=== PATIENT | male | born 1950 | race Caucasian/White ===

== ENCOUNTER 2020-09-07 10:13 | Day surgery (SDC) | payer MEDICARE, OTHER ==
[2020-09-06 12:20] VITALS: BMI 21.9
[2020-09-07] MEDS ORDERED: ePHEDrine 50 MG/ML VIAL ONE (10:51)
[2020-09-07] MEDS ORDERED: Bupivacaine PF 0.5% 30 ML VIAL ONE (11:42)
[2020-09-07] MEDS ORDERED: EPINEPHrine 1 MG/ML AMP ONE (11:42)
[2020-09-07] MEDS ORDERED: Fentanyl 100 MCG/2 ML VIAL ONE (12:58)
[2020-09-07] MEDS ORDERED: Propofol 500 MG/50 ML VIAL ONE (13:00)
[2020-09-07] MEDS ORDERED: Midazolam HCl 2 mg/2 ml Vial ONE (13:00)
[2020-09-07] MEDS ORDERED: Ketamine 50 MG/ML (10ML VIAL) ONE (13:00)
[2020-09-07] MEDS ORDERED: Iopamidol 15 ML ONE (14:28)
[2020-09-07] MEDS ORDERED: methylPREDNISolone Acetate 40 mg/ml Vial ONE (14:28)
[2020-09-07] MEDS ORDERED: Iopamidol 0 ML ONE (14:28)
--- NOTE | 2020-09-07 15:40 | RAD ---
XR Thoracic Spine 1 View History: Dorsal column stimulator Comparison: None. Findings: A single image was obtained with dorsal column stimulator wire projecting over the thoracic spine. Impression: Fluoroscopy for procedure purposes.
[2020-09-07] MEDS ORDERED: HYDROcodone/Acetaminophen 5/325 mg Tablet ONE (16:28)
--- NOTE | 2020-09-07 23:29 | OP ---
DATE OF PROCEDURE: 09/07/2020 PREOPERATIVE DIAGNOSES: 1. Complex regional pain syndrome, type 2 G 56.40. 2. G 89.4, chronic pain syndrome. 3. Post dural puncture headache, G 97.1. POSTOPERATIVE DIAGNOSES: 1. Complex regional pain syndrome, type 2 G 56.40. 2. G 89.4, chronic pain syndrome. 3. Post dural puncture headache, G 97.1. procedure performed 1. Spinal cord stimulator generator implant. 2. Spinal cord stimulator lead implant x1. 3. Spinal cord stimulator lead implant, unsuccessful, attempted but aborted. 4. Epidural blood patch. ESTIMATED BLOOD LOSS: Minimal. SUMMARY OF PROCEDURE: The patient was taken to the operating room and placed prone on the operating room table. A time-out was performed. The back was prepped with ChloraPrep and sterile drapes were applied. Using fluoroscopy, we located the interspaces of T9-10. We lined up a left-sided paramedian technique to target the right T9 foramen. The skin was anesthetized and a 14-gauge supplied Touhy needle was advanced in a paramedian technique and engaged in the interspinous ligament. We used loss of resistance to air to achieve access to the epidural space. Aspiration was negative for blood or CSF. We threaded a 4 contact lead and sheath through the needle and advanced it under continuous fluoroscopy into the epidural space and out of the right T9 foramen, which passed very easily. The sheath was removed taking care not to remove the lead and the lead stayed in place. We then created a double loop inside the epidural space to allow for slack. X-rays were taken, AP and lateral and the positioning was perfect. We then anesthetized the skin where the entry level accounting clerk was and made a vertical incision that was approximately 2-3 cm. We blunt dissected this down to fascia and blunt dissected outwards to find the needle as it entered. We removed the needle and left the lead in place. We took the lead with DeBakey's gently and brought them from the skin entry point into the incision site. We put the anchor over this and brought that down to fascia. We secured it to the fascia with 2-0 silk suture x2. We then turned our attention to the L5-S1 interspace and we performed a left paramedian technique similar to the procedure above. Once we had loss of resistance, we inserted the sheath and advanced it. However, once we had advanced it, we noticed that the lead was anterior. We took the sheath out and there was CSF. Initial aspiration when the lead needle was placed was negative for CSF and heme. The patient had history of a dural puncture at the L5-S1 level. Therefore, it was suspected that the patient may have an anatomical defect, which may have led to a thin ligament or a slim epidural space. We tried one more approach using the left paramedian technique, but had a shallower angle and achieved access to the epidural space. We threaded the sheath into the epidural space; however it would not pass towards foramen. Multiple attempts were made, however, these were gentle attempts to not damage any delicate structures. We decided that the there was something impeding the lead from advancing and therefore further attempts to place the lead was aborted as the risks then outweighed the benefit. Therefore, we took the needle out and sheath out. We then called the patient's and informed her of the dural puncture that happened and since the patient had had a previous postdural puncture headache, which was severe, we decided to prophylactically perform an epidural blood patch. The patient's gave consent after discussing the risks, benefits, and alternatives to the procedure. The patient himself had signed consent before with his previous blood patch. We inserted an 18-gauge Touhy needle in a left para laminar technique. We engaged it in the epidural space and advanced it and achieved loss of resistance. Aspiration was negative. We injected contrast to ensure that it was in the epidural space. Through this needle, the contrast flow was epidural. Through this needle, we injected 80 mg of Depo-Medrol to help with any radiculitis that may have been created with passing a lead. The right arm was prepped with ChloraPrep and sterile drapes were applied. Using strict sterile technique, 10 mL of autologous blood was aspirated with Hammad. This was passed to the sterile field and injected. The patient was woken up prior to injection at this point, and after approximately 8 mL of autologous blood, the patient noted a cramping sensation in the buttock and we stopped the injection. We then removed the needle and the patient stated his pain had gone away. We then placed the patient under anesthesia again. We anesthetized the battery pocket area in the left upper buttock. We made a horizontal incision and blunt dissected this down to Ajit's fascia. We then blunt dissected inferiorly and superiorly to create a pocket. We used a tunneling device to create a tunnel between the two incisions. We threaded the lead through the tunneling device and brought it to the battery pocket. We secured it to the battery using a torque wrench and impedances were checked, which were all good. We blocked the other 3 holes of the battery with the provided , we torqued these down to secure them to the battery as well. The battery was placed inside the pocket. The fascial layers were approximated using 2-0 Vicryl suture and horizontal mattress stitches. We then used a 3-0 Vicryl Rapide in a subcuticular stitch to approximate the skin layer. We used 2-layer Dermabond to occlude this and then once dry, we placed Steri-Strips over this to take the pressure off the Dermabond and a subcuticular stitch, and then we placed sterile 4x4s and Medipore tape over this. The patient was then taken to the Day Stay under stable condition and we spoke to the family and patient's . Job ID: [id number]
== END 2020-09-07 17:10 | disposition home or self-care (01) ==
LOC: SDC 10:13
PROVIDERS: ATTEND Specialist
PROC: 0JH70BZ Insertion of Single Array Stimulator Generator into Back Subcutaneous Tissue and Fascia, Open Approach (ICD-10-PCS; principal; 2020-09-07)
PROC: 00HU3MZ Insertion of Neurostimulator Lead into Spinal Canal, Percutaneous Approach (ICD-10-PCS; 2020-09-07)
PROC: 3E0S3GC Introduction of Other Therapeutic Substance into Epidural Space, Percutaneous Approach (ICD-10-PCS; 2020-09-07)
DX: G56.40 Causalgia of unspecified upper limb (principal); G89.4 Chronic pain syndrome; G97.1 Other reaction to spinal and lumbar puncture; M51.16 Intervertebral disc disorders with radiculopathy, lumbar region; M99.82 Other biomechanical lesions of thoracic region; E78.5 Hyperlipidemia, unspecified; F17.200 Nicotine dependence, unspecified, uncomplicated; F32.9 Major depressive disorder, single episode, unspecified; N40.0 Benign prostatic hyperplasia without lower urinary tract symptoms; Z79.891 Long term (current) use of opiate analgesic; Z79.899 Other long term (current) drug therapy
CPT/HCPCS: 72020; 76000; C1767; C1778; J0171; J0690; J2250; J2704; J2920; J3010; J3370; J3490; Q9966; Q9967; S0020

== ENCOUNTER 2020-10-08 07:07 | Day surgery (SDC) | payer MEDICARE, OTHER ==
[2020-10-07 12:37] VITALS: BMI 21.9
[2020-10-08] MEDS ORDERED: FLU VACC QS2020-21(65YR UP)/PF 240 MCG/0.7 ML SYRINGE IM ONE (09:00)
[2020-10-08 10:10] VITALS: BP 120/70; TEMP 98.4
== END 2020-10-08 09:41 | disposition home or self-care (01) ==
LOC: RAD 07:07
PROVIDERS: ATTEND Specialist
PROC: B02B1ZZ Computerized Tomography (CT Scan) of Spinal Cord using Low Osmolar Contrast (ICD-10-PCS; principal; 2020-10-08)
DX: M51.16 Intervertebral disc disorders with radiculopathy, lumbar region (principal); M47.26 Other spondylosis with radiculopathy, lumbar region; M43.16 Spondylolisthesis, lumbar region; G03.1 Chronic meningitis; G57.70 Causalgia of unspecified lower limb; G47.00 Insomnia, unspecified; M99.82 Other biomechanical lesions of thoracic region; K21.9 Gastro-esophageal reflux disease without esophagitis; E78.5 Hyperlipidemia, unspecified; Z79.891 Long term (current) use of opiate analgesic; Z79.899 Other long term (current) drug therapy
CPT/HCPCS: 62304; 72132

== ENCOUNTER 2020-12-23 12:00 | Outpatient (CLI) | payer MEDICARE, OTHER ==
[2020-09-03 06:44] LABS: SARS-CoV-2 PCR by NAA Not Detected (NotDetected)
[2020-12-23 14:24] LABS: Hemoglobin 13.3 g/dL (13.5-17.5); Mean Corpuscular HGB CONC 33.1 g/dL (32.0-36.0); Mean Corpuscular Hemoglobin 31.7 pg (27.0-33.0); Mean Corpuscular Volume 95.7 fl (81.2-95.1); Mean Platelet Volume 10.9 fl (7.4-10.4); Platelet Count 238 10x3/uL (150-450); White Blood Cell (WBC) Count 6.8 10x3/uL (3.5-10.5)
[2020-12-23 14:28] LABS: PTT 24.7 sec (22.0-33.0); Prothrombin Time 10.4 sec (9.5-12.1)
[2020-12-23 14:35] LABS: Anion Gap 12 mmol/L (10-20); BUN (Urea Nitrogen) 17 mg/dL (8.4-25.7); Calc. Creatinine Clearance 0 mL/min (70-130); Calcium 9.3 mg/dL (7.8-10.44); Carbon Dioxide 25 mmol/L (23-31); Chloride 108 mmol/L (98-107); Potassium 4.9 mmol/L (3.5-5.1); Sodium 140 mmol/L (136-145)
[2020-12-23 15:28] LABS: Glucose 38 mg/dL (80-115)
[2020-12-23 18:11] LABS: Anion Gap 10 mmol/L (10-20); BUN (Urea Nitrogen) 18 mg/dL (8.4-25.7); Calc. Creatinine Clearance 0 mL/min (70-130); Calcium 9.3 mg/dL (7.8-10.44); Carbon Dioxide 27 mmol/L (23-31); Chloride 108 mmol/L (98-107); Glucose 109 mg/dL (80-115); Sodium 140 mmol/L (136-145)
[2020-12-24 00:58] LABS: SARS-CoV-2 PCR by NAA Not Detected (NotDetected)
== END 2020-12-23 12:01 | disposition home or self-care (01) ==
LOC: LABBT 12:00
PROVIDERS: ATTEND Surgery
DX: Z01.818 Encounter for other preprocedural examination (principal); M48.062 Spinal stenosis, lumbar region with neurogenic claudication; M51.26 Other intervertebral disc displacement, lumbar region; Z20.822 Contact with and (suspected) exposure to COVID-19
CPT/HCPCS: U0003; U0005; 80048; 83036; 85027; 85610; 85730; 87635

== ENCOUNTER 2020-12-28 10:04 | Day surgery (SDC) | payer MEDICARE, OTHER ==
[2020-12-23 14:38] VITALS: BMI 21.2
[2020-12-28] MEDS ORDERED: Thrombin 5000 UNITS/5 ML VIAL ONE (11:12)
[2020-12-28 11:16] LABS: Glucose 91 mg/dL (80-115)
[2020-12-28] MEDS ORDERED: Fentanyl 250 MCG/5 ML VIAL ONE (11:56)
[2020-12-28] MEDS ORDERED: Glycopyrrolate 0.2 MG/ML 5 ML SYRINGE ONE (12:16)
[2020-12-28] MEDS ORDERED: Ketorolac Tromethamine 30 MG/ML VIAL ONE (12:16)
[2020-12-28] MEDS ORDERED: PROPOFOL 200 MG/20 ML VIAL ONE (12:16)
[2020-12-28] MEDS ORDERED: Rocuronium Bromide 10 MG/ML (10ML VIAL) ONE (12:16)
[2020-12-28] MEDS ORDERED: ePHEDrine Sulfate 50 MG/10 ML VIAL ONE (12:16)
[2020-12-28] MEDS ORDERED: Naloxone HCl 0.4 mg/ml Vial ONE (12:16)
[2020-12-28] MEDS ORDERED: Lidocaine 1% PF 5 ML VIAL ONE (12:16)
[2020-12-28] MEDS ORDERED: Ondansetron PF 4 MG/2 ML Vial ONE (12:16)
[2020-12-28] MEDS ORDERED: HYDROcodone/Acetaminophen 7.5/325 mg Tablet PO PRN (14:23)
[2020-12-28] MEDS ORDERED: Acetaminophen 325 MG TAB PO PRN (14:23)
[2020-12-28] MEDS ORDERED: Fentanyl 100 MCG/2 ML VIAL ONE ×3 (14:44→15:18)
[2020-12-28] MEDS ORDERED: Ondansetron HCl/PF 4 MG/2 ML Vial IVP PRN (14:56)
[2020-12-28] MEDS ORDERED: Promethazine HCl 25 MG/ML VIAL IM PRN (14:56)
[2020-12-28] MEDS ORDERED: Promethazine HCl 25 MG/ML VIAL SLOW IVP PRN (14:56)
[2020-12-28] MEDS ORDERED: HYDROmorphone 2 MG/ML VIAL ONE (15:32)
[2020-12-28] MEDS ORDERED: tiZANidine HCl 4 MG TAB ONE (17:25)
[2020-12-28] MEDS: tiZANidine HCl 4 MG TAB PO PRN (17:27)
[2020-12-28] MEDS: Morphine 2 MG/ML VIAL SLOW IVP PRN ×3 (18:21→23:41)
[2020-12-28] MEDS: Sodium Chloride 0.9% 1,000 ML IV SCH (18:42)
[2020-12-28] MEDS ORDERED: CEFAZOLIN 2 GM in Premix Bag 1 BAG IVPB SCH (19:00)
[2020-12-28] MEDS: Atorvastatin Calcium 10 MG TAB PO SCH (20:11)
[2020-12-28] MEDS: HYDROcodone/Acetaminophen 10/325 mg Tablet PO PRN (20:11)
[2020-12-28] MEDS: CEFAZOLIN 2 GM in Premix Bag 1 BAG IVPB SCH (20:12)
[2020-12-29] MEDS: tiZANidine HCl 4 MG TAB PO PRN ×2 (01:56→10:06)
[2020-12-29] MEDS: CEFAZOLIN 2 GM in Premix Bag 1 BAG IVPB SCH (04:30)
[2020-12-29] MEDS: HYDROcodone/Acetaminophen 10/325 mg Tablet PO PRN ×4 (04:30→23:00)
[2020-12-29] MEDS: Sodium Chloride 0.9% 1,000 ML IV SCH ×2 (05:00→17:33)
[2020-12-29] MEDS: Morphine 2 MG/ML VIAL SLOW IVP PRN ×6 (05:19→19:40)
[2020-12-29] MEDS: Acetaminophen/Codeine 30-300mg Tablet PO PRN ×3 (08:11→17:49)
[2020-12-29] MEDS: Tamsulosin HCl 0.4 MG CAP PO SCH (08:11)
[2020-12-29] MEDS: Lactinex Tablet PO SCH (08:11)
[2020-12-29] MEDS ORDERED: TRAMADOL HCL 300 MG PO SCH (09:00)
[2020-12-29] MEDS: traMADol HCl 50 MG TAB PO PRN (11:10)
[2020-12-29] MEDS: Diazepam 5 MG TAB PO PRN ×2 (13:37→21:24)
[2020-12-29] MEDS: Docusate 100 MG CAP PO PRN (17:49)
[2020-12-29] MEDS: Atorvastatin Calcium 10 MG TAB PO SCH (21:24)
[2020-12-30] MEDS: Acetaminophen/Codeine 30-300mg Tablet PO PRN ×3 (00:18→07:25)
[2020-12-30] MEDS: Morphine 2 MG/ML VIAL SLOW IVP PRN ×4 (02:06→08:17)
[2020-12-30] MEDS: Diazepam 5 MG TAB PO PRN ×2 (04:24→15:07)
[2020-12-30] MEDS: HYDROcodone/Acetaminophen 10/325 mg Tablet PO PRN ×4 (05:02→23:21)
[2020-12-30] MEDS: Sodium Chloride 0.9% 1,000 ML IV SCH ×2 (07:26→20:24)
[2020-12-30] MEDS: Lactinex Tablet PO SCH (08:22)
[2020-12-30] MEDS: Tamsulosin HCl 0.4 MG CAP PO SCH (08:22)
[2020-12-30] MEDS: traMADol HCl 50 MG TAB PO PRN (08:25)
[2020-12-30] MEDS ORDERED: HYDROcodone/Acetaminophen 10/325 mg Tablet PO PRN ×2 (10:17→10:56)
[2020-12-30] MEDS ORDERED: Non-Formulary Item 1 EACH (Tramadol Hcl [Tramadol Hcl Er] 300 MG) PO SCH (10:21)
[2020-12-30] MEDS: Ketorolac Tromethamine 30 MG/ML VIAL IVP PRN ×3 (11:06→23:21)
[2020-12-30] MEDS: Dexamethasone 4 MG TAB PO SCH ×3 (11:06→23:22)
[2020-12-30] MEDS: Docusate 100 MG CAP PO PRN (15:07)
[2020-12-30] MEDS: Atorvastatin Calcium 10 MG TAB PO SCH (20:28)
[2020-12-31 05:21] LABS: #Basophils 0.1 thou/uL (0.0-0.2); #Monocytes 0.4 thou/uL (0.11-0.59); #Neutrophils 10.8 thou/uL (1.40-6.50); %Basophils 0.5 % (0.0-1.0); %Eosinophils 0.2 % (0.0-10.0); %Lymphocytes 8.1 % (21.0-51.0); %Monocytes 3.5 % (0.0-10.0); %Neutrophils 87.6 % (42.0-75.0); Hemoglobin 12.1 g/dL (14.0-18.0); Mean Corpuscular HGB CONC 33.9 g/dL (32.0-36.0); Mean Corpuscular Hemoglobin 33.6 pg (27.0-31.0); Mean Corpuscular Volume 99.2 fL (78.0-98.0); Mean Platelet Volume 8.4 fL (7.4-10.4); Platelet Count 190 thou/uL (130-400); RBC Distribution Width 11.5 % (11.5-14.5); White Blood Cell (WBC) Count 12.4 thou/uL (4.8-10.8)
[2020-12-31] MEDS: Ketorolac Tromethamine 30 MG/ML VIAL IVP PRN ×3 (05:22→19:35)
[2020-12-31] MEDS: HYDROcodone/Acetaminophen 10/325 mg Tablet PO PRN ×3 (05:23→16:47)
[2020-12-31] MEDS: Dexamethasone 4 MG TAB PO SCH ×3 (05:23→18:30)
[2020-12-31 05:39] LABS: Anion Gap 11 mmol/L (10-20); BUN (Urea Nitrogen) 11 mg/dL (8.4-25.7); Calc. Creatinine Clearance 80 mL/min (70-130); Calcium 8.7 mg/dL (7.8-10.44); Carbon Dioxide 25 mmol/L (23-31); Chloride 105 mmol/L (98-107); Glucose 154 mg/dL (80-115); Sodium 137 mmol/L (136-145)
[2020-12-31] MEDS ORDERED: TRAMADOL HCL 300 MG PO SCH (09:00)
[2020-12-31] MEDS: Lactinex Tablet PO SCH (09:33)
[2020-12-31] MEDS: Tamsulosin HCl 0.4 MG CAP PO SCH (09:33)
[2020-12-31] MEDS: Sodium Chloride 0.9% 1,000 ML IV SCH (09:34)
[2020-12-31] MEDS: Docusate 100 MG CAP PO PRN (18:30)
[2020-12-31] MEDS: Atorvastatin Calcium 10 MG TAB PO SCH (19:36)
[2020-12-31 19:51] VITALS: BP 121/70; TEMP 97.5
== END 2020-12-31 21:51 ==
LOC: SDC 10:04 → SJJU 14:23 → SDC 12-31 21:51
PROVIDERS: ATTEND Surgery
PROC: 01NB0ZZ Release Lumbar Nerve, Open Approach (ICD-10-PCS; principal; 2020-12-28)
PROC: 0SB20ZZ Excision of Lumbar Vertebral Disc, Open Approach (ICD-10-PCS; 2020-12-28)
DX: M48.061 Spinal stenosis, lumbar region without neurogenic claudication (principal); M51.16 Intervertebral disc disorders with radiculopathy, lumbar region; R33.9 Retention of urine, unspecified; Z79.899 Other long term (current) drug therapy
CPT/HCPCS: 63047; 63056; 76000; 80048; 82947; 85025; 97110 ×2; 97116; 97139 ×2; 97530; 97535; J2270 ×3; 36415; J0690; J1170; J1885; J2310; J2405; J2704; J3010; J3370; J8540

== ENCOUNTER 2021-09-23 07:19 | Day surgery (SDC) | payer MEDICARE, OTHER ==
[2021-09-22 12:46] VITALS: BMI 22.9
[2021-09-23] MEDS ORDERED: Meperidine HCl/PF 25 MG/ML VIAL ONE (08:01)
[2021-09-23] MEDS ORDERED: methylPREDNISolone Sod Succ/PF 125 MG/2 ML VIAL ONE (08:05)
[2021-09-23] MEDS ORDERED: diphenhydrAMINE 50 MG/ML VIAL ONE ×2 (08:05→08:06)
[2021-09-23] MEDS ORDERED: Sodium Chloride 0.9% 20 ML ONE (08:07)
[2021-09-23] MEDS ORDERED: diphenhydrAMINE 50 MG/ML VIAL IVP SCH (08:15)
[2021-09-23] MEDS ORDERED: Famotidine/PF 20 mg/2ml Vial SLOW IVP SCH (08:15)
[2021-09-23 08:17] VITALS: TEMP 98
[2021-09-23] MEDS ORDERED: methylPREDNISolone Sod Succ 40 MG VIAL IVP SCH (09:00)
[2021-09-23 11:02] VITALS: BP 141/85
== END 2021-09-23 10:30 | disposition home or self-care (01) ==
LOC: RAD 07:19 → EDSTATUS 08:00 → RAD 10:30
PROVIDERS: ATTEND Specialist
DX: M51.16 Intervertebral disc disorders with radiculopathy, lumbar region (principal); M51.17 Intervertebral disc disorders with radiculopathy, lumbosacral region; G89.4 Chronic pain syndrome; Z79.899 Other long term (current) drug therapy; Z91.041 Radiographic dye allergy status
CPT/HCPCS: 62304; 72132; J1200; J2175; J2920; J2930; S0028

== ENCOUNTER 2022-01-16 12:45 | Outpatient (CLI) | payer MEDICARE, OTHER | END 2022-01-16 12:46 | disposition home or self-care (01) | LOC: LABBT 12:45 | PROVIDERS: ATTEND Specialist | DX: Z20.822 Contact with and (suspected) exposure to COVID-19 (principal) | CPT/HCPCS: U0003; U0005 ==

== ENCOUNTER 2022-01-19 09:48 | Day surgery (SDC) | payer MEDICARE, OTHER ==
[2022-01-16 10:46] VITALS: BMI 22.9
[2022-01-19] MEDS ORDERED: EPINEPHrine 1 MG/ML AMP ONE (10:58)
[2022-01-19] MEDS ORDERED: Bupivacaine PF 0.5% 30 ML VIAL ONE (10:58)
[2022-01-19] MEDS ORDERED: CEFAZOLIN 2 GM VIAL ONE (11:28)
[2022-01-19] MEDS ORDERED: Famotidine/PF 20 mg/2ml Vial ONE (11:38)
[2022-01-19] MEDS ORDERED: fentaNYL Citrate/PF 100 MCG/2 ML SYRINGE ONE (11:38)
[2022-01-19] MEDS ORDERED: Propofol 1,000 MG/100 ML VIAL IV ONE (11:38)
[2022-01-19] MEDS ORDERED: Midazolam HCl 2 mg/2 ml Vial ONE (11:38)
[2022-01-19] MEDS ORDERED: PROPOFOL 200 MG/20 ML VIAL ONE (11:52)
[2022-01-19] MEDS ORDERED: Ondansetron PF 4 MG/2 ML Vial ONE (11:52)
[2022-01-19] MEDS ORDERED: Lidocaine 1% PF 5 ML VIAL ONE (11:52)
== END 2022-01-19 14:30 | disposition home or self-care (01) ==
LOC: SDC 09:48
PROVIDERS: ATTEND Specialist
PROC: 0JH70BZ Insertion of Single Array Stimulator Generator into Back Subcutaneous Tissue and Fascia, Open Approach (ICD-10-PCS; principal; 2022-01-19)
PROC: 00HU3MZ Insertion of Neurostimulator Lead into Spinal Canal, Percutaneous Approach (ICD-10-PCS; 2022-01-19)
DX: G89.4 Chronic pain syndrome (principal); M96.1 Postlaminectomy syndrome, not elsewhere classified; G03.8 Meningitis due to other specified causes; M51.16 Intervertebral disc disorders with radiculopathy, lumbar region; M51.17 Intervertebral disc disorders with radiculopathy, lumbosacral region; K59.03 Drug induced constipation; Z79.899 Other long term (current) drug therapy; Z91.041 Radiographic dye allergy status
CPT/HCPCS: 63650 ×2; 63685; 72020; 76000; C1713 ×3; C1787; J0171; J0690; J2250; J2405; J2704; S0020; S0028

== ENCOUNTER 2022-06-27 12:29 | Day surgery (SDC) | payer MEDICARE, OTHER ==
[2022-06-26 09:50] VITALS: BMI 24.6
[2022-06-27] MEDS ORDERED: Lidocaine 1% MPF 2 ML VIAL ONE (13:40)
[2022-06-27] MEDS ORDERED: Propofol 1,000 MG/100 ML VIAL IV ONE (14:46)
[2022-06-27] MEDS ORDERED: Ketamine 50 MG/ML (10ML VIAL) ONE (14:46)
[2022-06-27] MEDS ORDERED: Bupivacaine HCl 0.5%/Epinephrine 1:200,000/PF 30 ml Vial ONE (14:49)
[2022-06-27] MEDS ORDERED: PROPOFOL 200 MG/20 ML VIAL ONE (15:06)
[2022-06-27] MEDS ORDERED: CEFAZOLIN 1 GM VIAL ONE (15:15)
[2022-06-27] MEDS ORDERED: HYDROcodone/Acetaminophen 5/325 mg Tablet ONE (16:17)
== END 2022-06-27 17:06 | disposition home or self-care (01) ==
LOC: SDC 12:29
PROVIDERS: ATTEND Specialist
PROC: 0JWT0MZ Revision of Stimulator Generator in Trunk Subcutaneous Tissue and Fascia, Open Approach (ICD-10-PCS; principal; 2022-06-27)
DX: M96.1 Postlaminectomy syndrome, not elsewhere classified (principal); G89.4 Chronic pain syndrome; M51.16 Intervertebral disc disorders with radiculopathy, lumbar region; G56.40 Causalgia of unspecified upper limb; M51.17 Intervertebral disc disorders with radiculopathy, lumbosacral region; G03.9 Meningitis, unspecified; K59.03 Drug induced constipation; E78.00 Pure hypercholesterolemia, unspecified; Z79.899 Other long term (current) drug therapy; Z91.041 Radiographic dye allergy status
CPT/HCPCS: J0690; J2704; J3370